=== PATIENT | male | born 2000 | race Two or more races ===

== ENCOUNTER 2021-08-30 13:50 | Outpatient (REF) | payer MEDICAID, SELFPAY ==
[2021-08-30 15:14] LABS: COVID-19 Test Negative (Negative)
== END 2021-08-30 13:51 | disposition home or self-care (01) ==
LOC: HO.LAB 13:50
PROVIDERS: Visit Provider Internal Medicine
DX: Z20.822 Contact with and (suspected) exposure to COVID-19 (principal)
CPT/HCPCS: 36415; 87635; C9803